=== PATIENT | female | born 1985 | race American Indian/Alaskan Native ===

== ENCOUNTER 2017-05-30 04:22 | Emergency (ER) | payer OTHER, MEDICAID ==
[2017-05-30] MEDS ORDERED: TYLENOL PO ONE (09:48)
[2017-05-30] MEDS ORDERED: DELTASONE PO ONE (09:48)
[2017-05-30] MEDS ORDERED: ROBITUSSIN PO ONE (09:48)
--- NOTE | 2017-05-30 09:49 | Emergency Department Report ---
Minor Respiratory - HPI Chief Complaint: Upper Respiratory Infection Stated Complaint: BODYACHE Time Seen by Provider: 05/30/17 09:41 Minor Respiratory: Yes Sore Throat, Yes Able to Tolerate Fluids, Yes Cough, Yes Sick Contacts (child), Yes Fever, No Rhinorrhea, No Ear Pain, No Hemoptysis, No Chest Pain, No Shortness of Breath Other History: 31-year-old female with no problem medical history presents to ED complaining of generalized body aches, runny nose, nonproductive cough that started yesterday. Patient states he recently had a child was sick. Patient states that she has not taken any medications recently. She says this was her period was 05/24/2017 was normal. Patient denies nausea/vomiting/abdominal pain /chest pains or shortness of breath/blurred vision or dizziness. ED Review of Systems ROS: Stated complaint: BODYACHE Other details as noted in HPI Constitutional: denies: chills, fever Eyes: denies: eye pain, eye discharge, vision change ENT: denies: ear pain, throat pain Respiratory: cough. denies: shortness of breath, wheezing Cardiovascular: denies: chest pain, palpitations Endocrine: no symptoms reported Gastrointestinal: denies: abdominal pain, nausea, diarrhea Genitourinary: denies: urgency, dysuria, frequency, hematuria, discharge Musculoskeletal: myalgia. denies: back pain, joint swelling, arthralgia Skin: denies: rash, lesions, pruritus Neurological: denies: headache, weakness, numbness, paresthesias Psychiatric: denies: anxiety, depression Hematological/Lymphatic: denies: easy bleeding, easy bruising ED Past Medical Hx - Past Medical History Previous Medical History?: Yes Hx Hypertension: No Hx Congestive Heart Failure: No Hx Diabetes: No Hx Deep Vein Thrombosis: No Hx Renal Disease: No Hx Sickle Cell Disease: No Hx Seizures: No Hx Asthma: No Hx COPD: No Hx HIV: No Additional medical history: OBESITY - Surgical History Past Surgical History?: Yes Additional Surgical History: Tubal Ligation. X 2 - Social History Smoking Status: Never Smoker Substance Use Type: None - Medications Home Medications: Home Medications Medication Instructions Recorded Confirmed Last Taken Type HYDROcodone/APAP 5-325 [[place] 1 each PO Q6HR PRN #20 tablet 07/12/15 Unknown Rx 5/325] Ibuprofen [Motrin] 800 mg PO Q8HR PRN #21 tablet 07/12/15 Unknown Rx Azithromycin [Zithromax Z-ALONDRA] 250 mg PO DAILY #6 tablet 01/10/16 Unknown Rx Cetirizine HCl [ZyrTEC] 10 mg PO DAILY #25 capsule 05/30/17 Unknown Rx Guaifen/Dextromethorphan/PE 5 ml PO Q6H #118 ml 05/30/17 Unknown Rx [Robitussin Cough-Cold Cf Liq] Ibuprofen [Motrin 800 MG tab] 800 mg PO Q8HR PRN #25 tablet 05/30/17 Unknown Rx Oseltamivir [Tamiflu] 75 mg PO BID #14 capsule 05/30/17 Unknown Rx Minor Respiratory Exam - Exam General: Vital signs noted. No distress. Alert and acting appropriately. HEENT: Yes Moist Mucous Membranes, No Pharyngeal Erythema, No Pharyngeal Exudates, No Rhinorrhea, No Conjuctival Injection, No Frontal Tenderness, No Maxillary Tenderness Ear: Neither TM Bulge, Neither TM Erythema, Neither EAC Pain, Neither EAC Discharge Neck: Yes Supple, No Adenopathy Lungs: Yes Good Air Exchange, No Wheezes, No Ronchi, No Stridor, No Cough, No Labored Respirations, No Retractions, No Use of Accessory Muscles, No Other Abnormal Lung Sounds Heart: Yes Regular, No Murmur Abdomen: Yes Normal Bowel Sounds, No Tenderness, No Peritoneal Signs Skin: No Rash, No Edema Neurologic: Alert and oriented, no deficits. Musculoskeletal: Unremarkable. ED Course Vital Signs 05/30/17 05:40 Temperature 100.3 F H Pulse Rate 103 H Respiratory 18 Rate Blood Pressure 120/75 O2 Sat by Pulse 95 Oximetry ED Medical Decision Making - Radiology Data Radiology results: report reviewed, image reviewed Fluoro Time In Minutes: ROUTINE CHEST, TWO VIEWS: HISTORY: Cough, fever. The trachea, heart, mediastinal contour, lung lugo and bony thorax are unremarkable. IMPRESSION: Unremarkable chest x-ray. Transcribed By: TTR Dictated By: RAYMOND MALONE JR, MD Electronically Authenticated By: RAYMOND MALONE JR, MD Signed Date/Time: 05/30/17 1032 - Medical Decision Making 31-year-old female presents with flulike symptoms. Fever resolved no fever during the ED stay. She received Tylenol, prednisone and Robitussin ED Chest x-ray ordered, results above I discussed findings with the patient. Discussed with pt symptomatic relief with [id number] medications. Discussed continue Motrin as needed for fever and pain. Discussed increase fluids and diet intake. Discussed rest much needed. Discussed daily vitamin C for immune booster. Discussed follow-up with pcp in 3-5 days. Patient verbally states she understands and will comply the following instructions and follow-up Vital signs stable. Patient is in no acute distress Critical care attestation.: If time is entered above; I have spent that time in minutes in the direct care of this critically ill patient, excluding procedure time. ED Disposition Clinical Impression: Viral syndrome Upper respiratory infection Qualifiers: URI type: unspecified URI Qualified Code(s): J06.9 - Acute upper respiratory infection, unspecified Disposition: TO HOME OR SELFCARE Is pt being admited?: No Does the pt Need Aspirin: No Condition: Stable Instructions: Upper Respiratory Infection (ED), Viral Syndrome (ED), Cold Symptoms (ED) Additional Instructions: Make sure to follow up with the primary care physician as discussed. Take all your medications as you've been prescribed. If you have any worsening symptoms or develop new symptoms please return to ED immediately. Prescriptions: Cetirizine HCl [ZyrTEC] 10 mg PO DAILY #25 capsule Guaifen/Dextromethorphan/PE [Robitussin Cough-Cold Cf Liq] 5 ml PO Q6H #118 ml Ibuprofen [Motrin 800 MG tab] 800 mg PO Q8HR PRN #25 tablet PRN Reason: Pain Oseltamivir [Tamiflu] 75 mg PO BID #14 capsule Referrals: PRIMARY CARE, [Primary Care Provider] - 3-5 Days [facility] [Outside] - 3-5 Days [facility] [Outside] - 3-5 Days Forms: Work/School Release Form(ED) Time of Disposition: 10:58
[2017-05-30 10:39] VITALS: BP 109/61
--- NOTE | 2017-05-30 10:39 | XRay Report ---
ROUTINE CHEST, TWO VIEWS: HISTORY: Cough, fever. The trachea, heart, mediastinal contour, lung lugo and bony thorax are unremarkable. IMPRESSION: Unremarkable chest x-ray.
== END 2017-05-30 11:16 | disposition home or self-care (01) ==
LOC: ED 04:22
DX: B34.9 Viral infection, unspecified (principal); J06.9 Acute upper respiratory infection, unspecified; Z98.51 Tubal ligation status
CPT/HCPCS: 71046; 99283; J7512

== ENCOUNTER 2017-07-08 10:09 | Emergency (ER) | payer OTHER, MEDICAID ==
[2017-07-08 11:47] VITALS: BP 133/75
--- NOTE | 2017-07-08 12:50 | Emergency Department Report ---
ED ENT HPI - General Chief complaint: Sore Throat Stated complaint: SORE THROAT Time Seen by Provider: 07/08/17 12:50 Source: patient Mode of arrival: Ambulatory Limitations: No Limitations - Related Data Previous Rx's Medication Instructions Recorded Last Taken Type HYDROcodone/APAP 5-325 [[place] 1 each PO Q6HR PRN #20 tablet 07/12/15 Unknown Rx 5/325] Ibuprofen [Motrin] 800 mg PO Q8HR PRN #21 tablet 07/12/15 Unknown Rx Azithromycin [Zithromax Z-ALONDRA] 250 mg PO DAILY #6 tablet 01/10/16 Unknown Rx Cetirizine HCl [ZyrTEC] 10 mg PO DAILY #25 capsule 05/30/17 Unknown Rx Guaifen/Dextromethorphan/PE 5 ml PO Q6H #118 ml 05/30/17 Unknown Rx [Robitussin Cough-Cold Cf Liq] Ibuprofen [Motrin 800 MG tab] 800 mg PO Q8HR PRN #25 tablet 05/30/17 Unknown Rx Oseltamivir [Tamiflu] 75 mg PO BID #14 capsule 05/30/17 Unknown Rx Allergies Allergy/AdvReac Type Severity Reaction Status Date / Time No Known Allergies Allergy Verified 07/12/15 14:09 ED Dental HPI - General Chief complaint: Sore Throat Stated complaint: SORE THROAT Time Seen by Provider: 07/08/17 12:50 Source: patient Mode of arrival: Ambulatory Limitations: No Limitations - Related Data Previous Rx's Medication Instructions Recorded Last Taken Type HYDROcodone/APAP 5-325 [[place] 1 each PO Q6HR PRN #20 tablet 07/12/15 Unknown Rx 5/325] Ibuprofen [Motrin] 800 mg PO Q8HR PRN #21 tablet 07/12/15 Unknown Rx Azithromycin [Zithromax Z-ALONDRA] 250 mg PO DAILY #6 tablet 01/10/16 Unknown Rx Cetirizine HCl [ZyrTEC] 10 mg PO DAILY #25 capsule 05/30/17 Unknown Rx Guaifen/Dextromethorphan/PE 5 ml PO Q6H #118 ml 05/30/17 Unknown Rx [Robitussin Cough-Cold Cf Liq] Ibuprofen [Motrin 800 MG tab] 800 mg PO Q8HR PRN #25 tablet 05/30/17 Unknown Rx Oseltamivir [Tamiflu] 75 mg PO BID #14 capsule 05/30/17 Unknown Rx Allergies Allergy/AdvReac Type Severity Reaction Status Date / Time No Known Allergies Allergy Verified 07/12/15 14:09 ED Review of Systems ROS: Stated complaint: SORE THROAT Other details as noted in HPI ED Past Medical Hx - Past Medical History Hx Hypertension: No Hx Congestive Heart Failure: No Hx Diabetes: No Hx Deep Vein Thrombosis: No Hx Renal Disease: No Hx Sickle Cell Disease: No Hx Seizures: No Hx Asthma: No Hx COPD: No Hx HIV: No Additional medical history: OBESITY - Surgical History Additional Surgical History: Tubal Ligation. X 2 - Social History Smoking Status: Never Smoker Substance Use Type: None - Medications Home Medications: Home Medications Medication Instructions Recorded Confirmed Last Taken Type HYDROcodone/APAP 5-325 [[place] 1 each PO Q6HR PRN #20 tablet 07/12/15 Unknown Rx 5/325] Ibuprofen [Motrin] 800 mg PO Q8HR PRN #21 tablet 07/12/15 Unknown Rx Azithromycin [Zithromax Z-ALONDRA] 250 mg PO DAILY #6 tablet 01/10/16 Unknown Rx Cetirizine HCl [ZyrTEC] 10 mg PO DAILY #25 capsule 05/30/17 Unknown Rx Guaifen/Dextromethorphan/PE 5 ml PO Q6H #118 ml 05/30/17 Unknown Rx [Robitussin Cough-Cold Cf Liq] Ibuprofen [Motrin 800 MG tab] 800 mg PO Q8HR PRN #25 tablet 05/30/17 Unknown Rx Oseltamivir [Tamiflu] 75 mg PO BID #14 capsule 05/30/17 Unknown Rx ED Physical Exam - General Limitations: No Limitations ED Course Vital Signs 07/08/17 11:43 Temperature 98.6 F Pulse Rate 94 H Respiratory 16 Rate Blood Pressure 133/75 O2 Sat by Pulse 98 Oximetry Critical care attestation.: If time is entered above; I have spent that time in minutes in the direct care of this critically ill patient, excluding procedure time. ED Disposition Condition: Stable
[2017-07-08] MEDS ORDERED: MOTRIN PO ONE (12:56)
[2017-07-08] MEDS ORDERED: LIDOCAINE VISCOUS 2% PO ONE (12:56)
--- NOTE | 2017-07-08 13:02 | Emergency Department Report ---
- General Chief Complaint: Sore Throat Stated Complaint: SORE THROAT Time Seen by Provider: 07/08/17 12:50 Source: patient Mode of arrival: Ambulatory Limitations: No Limitations - History of Present Illness Initial Comments: This is a 31-year-old female nontoxic, well nourished in appearance, no acute signs of distress presents to the ED with c/o of productive cough, sore throat, rhinorrhea, nasal congestion x2 days. Patient describes productive cough as yellow mucus production. Patient denies any sick contact. Patient denies any recent travels, long car, recent hospital stays. Patient denies any calf pain or calf tenderness. Patient denies any chest pain, short of breath, fever, chills, nausea, vomiting, hemoptysis, numbness, tingling, headache or stiff neck. Patient denies allergies or PMH. MD Complaint: cough, sore throat, rhinorrhea, nasal congestion -: days(s) (2) Severity: mild Severity scale (0 -10): 8 Quality: aching Consistency: constant Improves With: nothing Worsens With: nothing Associated Symptoms: rhinorrhea, nasal congestion, sore throat, cough. denies: fever, chills, myalgias, diaphoresis, headache, stiff neck, chest pain, shortness of breath, abdominal pain, nausea, vomiting, diarrhea, dysuria, rash, confusion, right sweats, weight loss, epistaxis, hoarseness, ear pain Treatments Prior to Arrival: none - Related Data Previous Rx's Medication Instructions Recorded Last Taken Type HYDROcodone/APAP 5-325 [[place] 1 each PO Q6HR PRN #20 tablet 07/12/15 Unknown Rx 5/325] Ibuprofen [Motrin] 800 mg PO Q8HR PRN #21 tablet 07/12/15 Unknown Rx Azithromycin [Zithromax Z-ALONDRA] 250 mg PO DAILY #6 tablet 01/10/16 Unknown Rx Cetirizine HCl [ZyrTEC] 10 mg PO DAILY #25 capsule 05/30/17 Unknown Rx Guaifen/Dextromethorphan/PE 5 ml PO Q6H #118 ml 05/30/17 Unknown Rx [Robitussin Cough-Cold Cf Liq] Ibuprofen [Motrin 800 MG tab] 800 mg PO Q8HR PRN #25 tablet 05/30/17 Unknown Rx Oseltamivir [Tamiflu] 75 mg PO BID #14 capsule 05/30/17 Unknown Rx Azithromycin [Zithromax Z-ALONDRA] 250 mg PO DAILY #6 tablet 07/08/17 Unknown Rx Ibuprofen [Motrin] 600 mg PO Q8H PRN #30 tablet 07/08/17 Unknown Rx Nystas/Diphen/Xyl Visc/Mylanta 15 ml MM Q4H PRN 10 Days ml 07/08/17 Unknown Rx [Magic Mouthwash] Allergies Allergy/AdvReac Type Severity Reaction Status Date / Time No Known Allergies Allergy Verified 07/12/15 14:09 ED Review of Systems ROS: Stated complaint: SORE THROAT Other details as noted in HPI Constitutional: denies: chills, fever Eyes: denies: eye pain, eye discharge, vision change ENT: throat pain. denies: ear pain Respiratory: cough. denies: shortness of breath, wheezing Cardiovascular: denies: chest pain, palpitations Endocrine: no symptoms reported Gastrointestinal: denies: abdominal pain, nausea, diarrhea Genitourinary: denies: urgency, dysuria, discharge Musculoskeletal: denies: back pain, joint swelling, arthralgia Skin: denies: rash, lesions Neurological: denies: headache, weakness, paresthesias Psychiatric: denies: anxiety, depression Hematological/Lymphatic: denies: easy bleeding, easy bruising ED Past Medical Hx - Past Medical History Hx Hypertension: No Hx Congestive Heart Failure: No Hx Diabetes: No Hx Deep Vein Thrombosis: No Hx Renal Disease: No Hx Sickle Cell Disease: No Hx Seizures: No Hx Asthma: No Hx COPD: No Hx HIV: No Additional medical history: OBESITY - Surgical History Additional Surgical History: Tubal Ligation. X 2 - Social History Smoking Status: Never Smoker Substance Use Type: None - Medications Home Medications: Home Medications Medication Instructions Recorded Confirmed Last Taken Type HYDROcodone/APAP 5-325 [[place] 1 each PO Q6HR PRN #20 tablet 07/12/15 Unknown Rx 5/325] Ibuprofen [Motrin] 800 mg PO Q8HR PRN #21 tablet 07/12/15 Unknown Rx Azithromycin [Zithromax Z-ALONDRA] 250 mg PO DAILY #6 tablet 01/10/16 Unknown Rx Cetirizine HCl [ZyrTEC] 10 mg PO DAILY #25 capsule 05/30/17 Unknown Rx Guaifen/Dextromethorphan/PE 5 ml PO Q6H #118 ml 05/30/17 Unknown Rx [Robitussin Cough-Cold Cf Liq] Ibuprofen [Motrin 800 MG tab] 800 mg PO Q8HR PRN #25 tablet 05/30/17 Unknown Rx Oseltamivir [Tamiflu] 75 mg PO BID #14 capsule 05/30/17 Unknown Rx Azithromycin [Zithromax Z-ALONDRA] 250 mg PO DAILY #6 tablet 07/08/17 Unknown Rx Ibuprofen [Motrin] 600 mg PO Q8H PRN #30 tablet 07/08/17 Unknown Rx Nystas/Diphen/Xyl Visc/Mylanta 15 ml MM Q4H PRN 10 Days ml 07/08/17 Unknown Rx [Magic Mouthwash] ED Physical Exam - General Limitations: No Limitations General appearance: alert, in no apparent distress - Head Head exam: Present: atraumatic, normocephalic - Eye Eye exam: Present: normal appearance Pupils: Present: normal accommodation - ENT ENT exam: Present: mucous membranes moist, TM's normal bilaterally, normal external ear exam - Expanded ENT Exam Expanded Ear exam: Present: normal external inspection Mouth exam: Present: normal external inspection, tongue normal. Absent: drooling, trismus, muffled voice, tongue elevation, laceration Teeth exam: Present: normal inspection Throat exam: Positive: tonsillar erythema, tonsillomegaly (2+), tonsillar exudate, other (Uvula mildline. No abscess or swelling.). Negative: R peritonsillar mass, L peritonsillar mass - Neck Neck exam: Present: normal inspection, full ROM, lymphadenopathy (bilateral tonsillar). Absent: tenderness, meningismus, thyromegaly - Respiratory Respiratory exam: Present: normal lung sounds bilaterally. Absent: respiratory distress, wheezes, rales, rhonchi, stridor, chest wall tenderness, accessory muscle use, decreased breath sounds, prolonged expiratory - Cardiovascular Cardiovascular Exam: Present: regular rate, normal rhythm, normal heart sounds. Absent: irregular rhythm, systolic murmur, diastolic murmur, rubs, gallop - GI/Abdominal GI/Abdominal exam: Present: soft, normal bowel sounds - Rectal Rectal exam: Present: deferred - Extremities Exam Extremities exam: Present: normal inspection, full ROM, normal capillary refill. Absent: calf tenderness - Back Exam Back exam: Present: normal inspection, full ROM - Neurological Exam Neurological exam: Present: alert, oriented X3, normal gait - Psychiatric Psychiatric exam: Present: normal affect, normal mood - Skin Skin exam: Present: warm, dry, intact, normal color. Absent: rash ED Course Vital Signs 07/08/17 11:43 Temperature 98.6 F Pulse Rate 94 H Respiratory 16 Rate Blood Pressure 133/75 O2 Sat by Pulse 98 Oximetry - Reevaluation(s) Reevaluation #1: 07/08/17 13:01 Patient is speaking in full sentences with no signs of distress noted. ED Medical Decision Making - Medical Decision Making This is a 32-year-old female that presents with upper respiratory infection and tonsillitis with exudate. Patient is stable and was examined by me. Chest x- ray has been obtained and dictated by radiologist with normal exam. Patient is notified of x-ray results with no questions noted. Due to patient having symptoms of upper respiratory infection and tonsillitis I will treat patient empirically zpak. Patient received motrin and lidocaine visuous in the ED. Vitals stable. Patient is nonfebrile and normal heart rate. Patient was instructed Follow-up with a primary care doctor in 3-5 days or if symptoms worsen and continue return to emergency room as soon as possible. At time time of discharge, the patient does not seem toxic or ill in appearance. No acute signs of distress noted. Patient agrees to discharge treatment plan of care. No further questions noted by the patient. Critical care attestation.: If time is entered above; I have spent that time in minutes in the direct care of this critically ill patient, excluding procedure time. ED Disposition Clinical Impression: Tonsillitis with exudate Upper respiratory infection Qualifiers: URI type: unspecified URI Qualified Code(s): J06.9 - Acute upper respiratory infection, unspecified Disposition: - TO HOME OR SELFCARE Is pt being admited?: No Does the pt Need Aspirin: No Condition: Stable Instructions: Upper Respiratory Infection (ED), Tonsillitis (ED) Additional Instructions: Follow-up with a primary care doctor in 3-5 days or if symptoms worsen and continue return to emergency room as soon as possible. Prescriptions: Azithromycin [Zithromax Z-ALONDRA] 250 mg PO DAILY #6 tablet Ibuprofen [Motrin] 600 mg PO Q8H PRN #30 tablet PRN Reason: Pain Nystas/Diphen/Xyl Visc/Mylanta [Magic Mouthwash] 15 ml MM Q4H PRN 10 Days ml PRN Reason: Sore Throat Referrals: PRIMARY CAREMD [Referring] - 3-5 Days JIMBO GRAVES MD [Staff Physician] - 3-5 Days [facility] [Outside] - 3-5 Days [facility] [Outside] - 3-5 Days Forms: Work/School Release Form(ED)
--- NOTE | 2017-07-08 13:24 | XRay Report ---
ROUTINE CHEST, TWO VIEWS: HISTORY: Cough. The trachea, heart, mediastinal contour, lung lugo and bony thorax are unremarkable. IMPRESSION: Unremarkable chest x-ray. No change since 05/30/17.
== END 2017-07-08 14:45 | disposition home or self-care (01) ==
LOC: ED 10:09
DX: J03.90 Acute tonsillitis, unspecified (principal); J06.9 Acute upper respiratory infection, unspecified; Z98.51 Tubal ligation status
CPT/HCPCS: 71046; 99283

== ENCOUNTER 2020-02-06 17:14 | Emergency (ER) | payer OTHER, MEDICAID ==
--- NOTE | 2020-02-06 17:52 | Event Note ---
ED Screening Note Date of service: 02/06/20 Time: 17:45 ED Screening Note: 34 can [place] female presents to the emergency room for 1 week of constant headache and right-sided neck pain. Patient states that she has had no injuries. No fever no chills no nausea no vomiting no blurred vision she does report she has been taking Aleve 3 tablets daily without much relief. She does admit that loud noise irritates her headache. She does have a history of galactorrhea and is currently taking Cabergoline 0.5mg. Has not taken any pain medication today. This initial assessment/diagnostic orders/clinical plan/treatment(s) is/are subject to change based on patients health status, clinical progression and re- assessment by fellow clinical providers in the ED. Further treatment and workup at subsequent clinical providers discretion. Patient/guardian urged not to elope from the ED as their condition may be serious if not clinically assessed and managed. Initial orders include:
--- NOTE | 2020-02-07 00:27 | Cat Scan Report ---
CT HEAD WITHOUT CONTRAST INDICATION / CLINICAL INFORMATION: headache. TECHNIQUE: All CT scans at this location are performed using CT dose reduction for ALARA by means of automated exposure control. COMPARISON: None available. FINDINGS: HEMORRHAGE: None. EXTRA-AXIAL SPACES: Normal in size and morphology for the patient's age. VENTRICULAR SYSTEM: Normal in size and morphology for the patient's age. CEREBRAL PARENCHYMA: No significant abnormality. No acute territorial infarct. MIDLINE SHIFT OR HERNIATION: None. CEREBELLUM / BRAINSTEM: No significant abnormality. ORBITS: Normal as visualized. SOFT TISSUES of HEAD: No significant abnormality. CALVARIUM: No significant abnormality. PARANASAL SINUSES / MASTOID AIR CELLS: Normal as visualized. ADDITIONAL FINDINGS: None. IMPRESSION: 1. No acute intracranial abnormality. Signer Name: Qasim Shannon MD Signed: 02/07/2020 12:22 AM Workstation Name: [id number]
--- NOTE | 2020-02-07 01:11 | Emergency Department Report ---
ED Headache HPI - General Chief Complaint: Headache Stated Complaint: NECK/HEADACHE Time Seen by Provider: 02/06/20 22:12 Source: patient Exam Limitations: no limitations - History of Present Illness Initial Comments: 34-year-old obese Japanese female just emerged department complaining of 1 week history of a dull throbbing headache to the frontal parietal region with no associated symptoms. She reports no visual changes, no scotomas no nausea vomiting states is the worst headache that she has had and she does not get headaches very often. Quality: mild Head Injury Location: frontal, occipital Associated Symptoms: denies: confusion, fatigue, loss of consciousness, nasal congestion, seizures, sinus infection, stiff neck, vision changes, weakness Allergies/Adverse Reactions: Allergies No Known Allergies Allergy (Verified 07/12/15 14:09) Home Medications: Ambulatory Orders HYDROcodone/APAP 5-325 [Secretary 5/325] 1 each PO Q6HR PRN #20 tablet 07/12/15 Ibuprofen [Motrin] 800 mg PO Q8HR PRN #21 tablet 07/12/15 Azithromycin [Zithromax Z-ALONDRA] 250 mg PO DAILY #6 tablet 01/10/16 Cetirizine HCl [ZyrTEC 10mg cap] 10 mg PO DAILY #25 capsule 05/30/17 Guaifen/Dextromethorphan/PE [Robitussin Cough-Cold Cf Liq] 5 ml PO Q6H #118 ml 05/30/17 Ibuprofen [Motrin 800 MG tab] 800 mg PO Q8HR PRN #25 tablet 05/30/17 Oseltamivir [Tamiflu] 75 mg PO BID #14 capsule 05/30/17 Azithromycin [Zithromax Z-ALONDRA] 250 mg PO DAILY #6 tablet 07/08/17 Ibuprofen [Motrin] 600 mg PO Q8H PRN #30 tablet 07/08/17 Nystas/Diphen/Xyl Visc/Mylanta [Magic Mouthwash] 15 ml MM Q4H PRN 10 Days ml 07/08/17 Butalbit/Acetamin/Caff/Codeine [Fioricet-Cod 34-894-19-30 Cap] 1 each PO Q6H PRN #20 capsule 02/07/20 ED Review of Systems ROS: Stated complaint: NECK/HEADACHE Other details as noted in HPI Comment: All other systems reviewed and negative ED Past Medical Hx - Past Medical History Previous Medical History?: Yes Hx Hypertension: No Hx Congestive Heart Failure: No Hx Diabetes: No Hx Deep Vein Thrombosis: No Hx Renal Disease: No Hx Sickle Cell Disease: No Hx Seizures: No Hx Asthma: No Hx COPD: No Hx HIV: No Additional medical history: OBESITY - Surgical History Past Surgical History?: Yes Additional Surgical History: Tubal Ligation. X 2 - Social History Smoking Status: Never Smoker Substance Use Type: None - Medications Home Medications: Home Medications Medication Instructions Recorded Confirmed Last Taken Type HYDROcodone/APAP 5-325 [Secretary 1 each PO Q6HR PRN #20 tablet 07/12/15 Unknown Rx 5/325] Ibuprofen [Motrin] 800 mg PO Q8HR PRN #21 tablet 07/12/15 Unknown Rx Azithromycin [Zithromax Z-ALONDRA] 250 mg PO DAILY #6 tablet 01/10/16 Unknown Rx Cetirizine HCl [ZyrTEC 10mg cap] 10 mg PO DAILY #25 capsule 05/30/17 Unknown Rx Guaifen/Dextromethorphan/PE 5 ml PO Q6H #118 ml 05/30/17 Unknown Rx [Robitussin Cough-Cold Cf Liq] Ibuprofen [Motrin 800 MG tab] 800 mg PO Q8HR PRN #25 tablet 05/30/17 Unknown Rx Oseltamivir [Tamiflu] 75 mg PO BID #14 capsule 05/30/17 Unknown Rx Azithromycin [Zithromax Z-ALONDRA] 250 mg PO DAILY #6 tablet 07/08/17 Unknown Rx Ibuprofen [Motrin] 600 mg PO Q8H PRN #30 tablet 07/08/17 Unknown Rx Nystas/Diphen/Xyl Visc/Mylanta 15 ml MM Q4H PRN 10 Days ml 07/08/17 Unknown Rx [Magic Mouthwash] Butalbit/Acetamin/Caff/Codeine 1 each PO Q6H PRN #20 capsule 02/07/20 Unknown Rx [Fioricet-Cod 63-155-42-30 Cap] ED Physical Exam - General Limitations: No Limitations General appearance: alert, in no apparent distress - Head Head exam: Present: atraumatic, normocephalic - Eye Eye exam: Present: normal appearance. Absent: nystagmus Pupils: Present: other (Negative funduscopic examination) - ENT ENT exam: Present: mucous membranes moist - Neck Neck exam: Present: normal inspection - Respiratory Respiratory exam: Present: normal lung sounds bilaterally. Absent: respiratory distress - Cardiovascular Cardiovascular Exam: Present: regular rate, normal rhythm. Absent: systolic murmur, diastolic murmur, rubs, gallop - GI/Abdominal GI/Abdominal exam: Present: soft, normal bowel sounds - Extremities Exam Extremities exam: Present: normal inspection - Back Exam Back exam: Present: normal inspection - Neurological Exam Neurological exam: Present: alert, oriented X3, CN II-XII intact, normal gait, reflexes normal, other (Romberg negative [id number] is negative ilzr-[id number] is negative gait coordinated and smooth) - Psychiatric Psychiatric exam: Present: normal affect, normal mood. Absent: flat affect, suicidal ideation - Skin Skin exam: Present: warm, dry, intact, normal color. Absent: rash ED Course Vital Signs 02/06/20 17:40 Temperature 98.4 F Pulse Rate 94 H Respiratory 18 Rate Blood Pressure 132/47 O2 Sat by Pulse 98 Oximetry ED Medical Decision Making - Radiology Data Radiology results: report reviewed [address] [address] Cat Scan Report Signed Patient: JASON BOSWELL R#: [id number] : 1985 Acct:[id number] Age/Sex: 34 / F ADM Date: 02/06/20 Loc: ED Attending Dr: Ordering Physician: PHILIP OCONNOR Date of Service: 02/06/20 Procedure(s): CT head/brain wo con Accession Number(s): [id number] cc: PHILIP OCONNOR CT HEAD WITHOUT CONTRAST INDICATION / CLINICAL INFORMATION: headache. TECHNIQUE: All CT scans at this location are performed using CT dose reduction for ALARA by means of automated exposure control. COMPARISON: None available. FINDINGS: HEMORRHAGE: None. EXTRA-AXIAL SPACES: Normal in size and morphology for the patient's age. VENTRICULAR SYSTEM: Normal in size and morphology for the patient's age. CEREBRAL PARENCHYMA: No significant abnormality. No acute territorial infarct. MIDLINE SHIFT OR HERNIATION: None. CEREBELLUM / BRAINSTEM: No significant abnormality. ORBITS: Normal as visualized. SOFT TISSUES of HEAD: No significant abnormality. CALVARIUM: No significant abnormality. PARANASAL SINUSES / MASTOID AIR CELLS: Normal as visualized. ADDITIONAL FINDINGS: None. IMPRESSION: 1. No acute intracranial abnormality. Signer Name: Qasim Shannon MD Signed: 02/07/2020 12:22 AM Workstation Name: [id number] Transcribed By: DT Dictated By: Amor Shannon MD Electronically Authenticated By: Amor Shannon MD Signed Date/Time: 02/07/2021 DD/ TD/TT: - Medical Decision Making This patient presents with a headache most consistent with tension migraine. Differential diagnosis includes migraine versus tension type headache. No headache red flags. Neurologic exam without evidence of meningismus, focal neurologic findings.Based on the patient's history and physical there is very low clinical suspicion for significant intracranial pathology. The headache was NOT sudden onset, NOT maximal at onset, there are NO neurologic findings, the patient does NOT have a fever, the patient does NOT have any jaw claudication, the patient does NOT endorse a clotting disorder, patient DENIES any trauma or eye pain and the headache is NOT associated with dizziness or ataxia. Presentation not consistent with acute intracranial bleed to include SAH (lack of risk factors, headache history). Presentation not consistent with acute SLICING MACHINE OPERATOR/TENDER infection to include meningitis or brain abscess, Temporal arteritis unlikely, as is acute angle closure glaucoma given history and physical findings. Presentation not consistent with other acute, emergent causes of headache at this time. Plan to treat symptomatically with pain medication. No indication for imaging/LP at this time. Plan: pain medication, CT brain [facility] [address] [place] [address] Cat Scan Report Signed Patient: JASON BOSWELL#: [id number] : 1985 Acct:[id number] Age/Sex: 34 / F ADM Date: 02/06/20 Loc: ED Attending Dr: Ordering Physician: PHILIP OCONNOR Date of Service: 02/06/20 Procedure(s): CT head/brain wo con Accession Number(s): [id number] cc: PHILIP OCONNOR CT HEAD WITHOUT CONTRAST INDICATION / CLINICAL INFORMATION: headache. TECHNIQUE: All CT scans at this location are performed using CT dose reduction for ALARA by means of automated exposure control. COMPARISON: None available. FINDINGS: HEMORRHAGE: None. EXTRA-AXIAL SPACES: Normal in size and morphology for the patient's age. VENTRICULAR SYSTEM: Normal in size and morphology for the patient's age. CEREBRAL PARENCHYMA: No significant abnormality. No acute territorial infarct. MIDLINE SHIFT OR HERNIATION: None. CEREBELLUM / BRAINSTEM: No significant abnormality. ORBITS: Normal as visualized. SOFT TISSUES of HEAD: No significant abnormality. CALVARIUM: No significant abnormality. PARANASAL SINUSES / MASTOID AIR CELLS: Normal as visualized. ADDITIONAL FINDINGS: None. IMPRESSION: 1. No acute intracranial abnormality. Signer Name: Qasim Shannon MD Signed: 02/07/2020 12:22 AM Workstation Name: [id number] Transcribed By: DT Dictated By: Amor Shannon MD Electronically Authenticated By: Amor Shannon MD Signed Date/Time: 02/07/2021 DD/ TD/TT: serial reassessment Critical care attestation.: If time is entered above; I have spent that time in minutes in the direct care of this critically ill patient, excluding procedure time. ED Disposition Clinical Impression: Cephalgia Disposition: DC-01 TO HOME OR SELFCARE Is pt being admited?: No Does the pt Need Aspirin: No Condition: Stable Instructions: Acute Headache (ED) Prescriptions: Butalbit/Acetamin/Caff/Codeine [Fioricet-Cod 33-708-68-30 Cap] 1 each PO Q6H PRN #20 capsule PRN Reason: Headache Referrals: PRIMARY MD MACARIO [Primary Care Provider] - 3-5 Days ANNMARIE NULL MD [Staff Physician] - 3-5 Days
[2020-02-07 02:48] VITALS: BP 124/90
== END 2020-02-07 01:31 | disposition home or self-care (01) ==
LOC: ED 17:14
DX: R51.9 Headache, unspecified (principal); E66.8 Other obesity; Z98.51 Tubal ligation status; Z98.890 Other specified postprocedural states; Z79.899 Other long term (current) drug therapy
CPT/HCPCS: 70450